=== PATIENT | female | born 1965 | race Caucasian/White ===

== ENCOUNTER → 2024-01-10 12:05 | Outpatient (BNVA) | payer BC, SELFPAY | PROVIDERS: Family Provider Nurse Practitioner Family; PCP Family Medicine; Visit Provider Family Medicine | DX: R19.7 Diarrhea, unspecified (principal) | CPT/HCPCS: 87045; 87177; 87209; 87427; 87449; 87493 ==

== ENCOUNTER 2025-03-25 13:20 | Outpatient (CLI) | payer BC, SELFPAY ==
--- NOTE | 2025-03-25 13:45 | MR_ITS ---
WS: [id number] MRI CERVICAL SPINE NONCONTRAST HISTORY: cervical disc disease COMPARISON: 09/04/2012 Technique: Multiplanar, multisequence noncontrast imaging of the cervical spine. Normal cervical alignment with no compression fracture or significant disc space narrowing. Signal within the cervical cord is normal. Visualized posterior fossa is unremarkable. Craniocervical junction, C1 and C2 relationship, odontoid process and soft tissues are normal. C2-C3: Normal. C3-C4: Normal. C4-C5: Mild annular disc bulging and minimal hypertrophic osteophyte development. Very mild LEFT foraminal narrowing. C5-C6: Mild annular disc bulging. No stenosis. C6-C7: Mild annular disc bulging with a very shallow central disc protrusion. Small bilateral foraminal osteophytes and mild facet disease. Mild central stenosis. C7-T1: Normal. Paraspinal soft tissue are normal. MR/MR cervical spin wo con* [id number] IMPRESSION: 1. No high-grade central or foraminal stenosis. 2. No acute compression fractures or marrow edema. 3. Mild LEFT foraminal stenosis at C4-5. 4. Shallow central disc protrusion at C6-7 and small foraminal osteophytes. Mi ld central stenosis.
== END 2025-03-25 13:21 | disposition home or self-care (01) ==
LOC: RAD 13:23
PROVIDERS: PCP Family Medicine; Visit Provider Family Medicine
DX: M50.321 Other cervical disc degeneration at C4-C5 level (principal); M50.322 Other cervical disc degeneration at C5-C6 level; M50.323 Other cervical disc degeneration at C6-C7 level; M48.02 Spinal stenosis, cervical region; M25.78 Osteophyte, vertebrae
CPT/HCPCS: 72141

== ENCOUNTER 2025-03-27 10:39 | Outpatient (CLI) | payer BC, SELFPAY ==
--- NOTE | 2025-03-27 11:00 | CTR_ITS ---
PROCEDURE INFORMATION: Exam: CT Chest With Contrast; Diagnostic Exam date and time: 03/27/2025 10:52 AM Age: 59 years old Clinical indication: Abnormal findings; Abnormal radiologic exam of lung or chest; Prior surgery; Surgery date: 6+ months; Surgery type: Breast reduction; Additional info: Lung mass on mri TECHNIQUE: Imaging protocol: Diagnostic computed tomography of the chest with contrast. Radiation optimization: All CT scans at this facility use at least one of these dose optimization techniques: automated exposure control; mA and/or kV adjustment per patient size (includes targeted exams where dose is matched to clinical indication); or iterative reconstruction. Contrast material: OMNI 350; Contrast volume: 100 ml; Contrast route: INTRAVENOUS (IV); COMPARISON: MR cervical spin wo con* [id number] 03/25/2025 1:37 PM RADIATION DOSE METRICS: Total DLP (mGy-cm): 254.61 FINDINGS: Thyroid: Thyroid is somewhat diminutive with possible heterogeneous ectopic thyroid/thyroid nodule measuring 15 mm within the upper mediastinum on image 14 of series 3. Lungs: Within normal limits. Pleural spaces: No pneumothorax. No pleural effusion. Heart: Within normal limits. Lymph nodes: Within normal limits. Vasculature: Nonaneurysmal ascending thoracic aorta with plaque. Intestine: Status post Jocelin-en-Y gastric bypass and cholecystectomy. Bones/joints: Possible T12 vertebral body hemangioma. Soft tissues: Unremarkable. CT/CT chest w con* [id number] IMPRESSION: Diminutive thyroid with possible ectopic thyroid/nodule measuring 15 mm in the upper mediastinum. This can be further evaluated with ultrasound and/or nuclear medicine examination. No adenopathy or suspicious lung lesions. COMMENTS: Consistent with the [employer]'s Incidental Findings Committee white paper (J Am Gabriel Radiol 2015): In patients aged 35 years and older with an incidental thyroid nodule equal to or greater than 1.[address], MRI or extrathyroidal US, further evaluation with dedicated thyroid US is recommended for patients with normal life expectancy and without comorbidities. For smaller nodules without suspicious features, no further evaluation or follow up is recommended.
[2025-03-27] MEDS: iohexol 350 mg/mL 500 mL Btl (per mL) IV (11:02)
== END 2025-03-27 10:40 | disposition home or self-care (01) ==
LOC: RAD 10:40
PROVIDERS: PCP Family Medicine; Visit Provider Family Medicine
DX: R91.8 Other nonspecific abnormal finding of lung field (principal); I70.0 Atherosclerosis of aorta; Z98.84 Bariatric surgery status; Z90.49 Acquired absence of other specified parts of digestive tract; E04.2 Nontoxic multinodular goiter
CPT/HCPCS: 71260

== ENCOUNTER 2025-04-13 13:31 | Outpatient (CLI) | payer BC, SELFPAY ==
--- NOTE | 2025-04-13 13:45 | MR_ITS ---
WS: [id number] MRI THORACIC SPINE WITHOUT CONTRAST TECHNIQUE: Sagittal T1, T2 and STIR imaging. Axial T2 imaging. Noncontrast imaging obtained. CLINICAL INFORMATION: back pain COMPARISON: None. FINDINGS: Mild thoracic curve. Mild thoracic kyphosis. No acute compression fractures. No high-grade central canal stenosis. Cord signal is normal. Moderate facet arthropathy lower thoracic spine. No significant disc protrusions or extrusions. Mild to moderate spondylitic changes. Normal caliber descending thoracic aorta. Adrenal glands are normal. Small esophageal hiatal hernia. Heterogeneous bone marrow signal throughout the thoracic spine. This is probably due to osteopenia/osteoporosis. Hemangioma T12. Suspected atypical hemangiomas at T3 and L1. Considering history of back pain recommend correlation for multiple myeloma although less likely. MR/MR thoracic spin wo con* [id number] IMPRESSION: 1. Mild thoracic curve. No acute compression. No high-grade central canal sten osis. 2. Diffuse heterogeneous bone marrow signal throughout the thoracic spine may be incidental but can be seen with osteoporosis, hyperplastic marrow/anemia, an d less likely multiple myeloma. Recommend correlation with laboratory markers. 3. No significant disc protrusions or extrusions. 4. Moderate facet arthropathy lower thoracic spine.
== END 2025-04-13 13:32 | disposition home or self-care (01) ==
LOC: RAD 13:32
PROVIDERS: PCP Family Medicine; Visit Provider Family Medicine
DX: M54.9 Dorsalgia, unspecified (principal); G89.29 Other chronic pain; M43.8X4 Other specified deforming dorsopathies, thoracic region; R93.7 Abnormal findings on diagnostic imaging of other parts of musculoskeletal system; M47.814 Spondylosis without myelopathy or radiculopathy, thoracic region; M40.204 Unspecified kyphosis, thoracic region; M46.84 Other specified inflammatory spondylopathies, thoracic region; K44.9 Diaphragmatic hernia without obstruction or gangrene
CPT/HCPCS: 72146

== ENCOUNTER → 2025-04-16 11:00 | Outpatient (BNVA) | payer BC, SELFPAY | PROVIDERS: PCP Family Medicine; Visit Provider Family Medicine | DX: R93.89 Abnormal findings on diagnostic imaging of other specified body structures (principal); M54.9 Dorsalgia, unspecified; G89.29 Other chronic pain | CPT/HCPCS: 80053; 83884; 84155; 84165; 85025 ==

== ENCOUNTER 2025-05-06 13:54 | Oncology outpatient (recurring) (ONCR) | payer BC, SELFPAY ==
[2025-05-06 15:14] LABS: Hematocrit 39.9 % (36-47); Hemoglobin 13.20 g/dL (11.27-16.99); Mean Corpuscular HGB Conc 33.1 g/dL (30-55); Mean Corpuscular Hemoglobin 29.3 pg (27-33); Mean Corpuscular Volume 88.7 fl (85-98); Nucleated Red Blood Cells % 0 %; Platelet Count 291 10^3/cmm (157-399); Red Blood Count 4.50 10^6/uL (3.85-5.65); White Blood Count 6.24 10^3/uL (3.29-11.43)
[2025-05-06 15:30] LABS: Iron 64 ug/dL (37-145)
[2025-05-06 15:31] LABS: Alanine Aminotransferase 18 U/L (0-33); Albumin Level 4.6 g/dL (3.5-5.2); Alkaline Phosphatase 88 U/L (35-105); Anion Gap 18.1 (5-19); Aspartate Amino Transferase 26 U/L (0-32); Blood Urea Nitrogen 19 mg/dL (6-20); Calcium 9.7 mg/dL (8.5-10.5); Carbon Dioxide 27 mmol/L (22-29); Chloride 100 mmol/L (98-107); Ferritin 123 ng/mL (15-150); Globulin 2.5 g/dL (1.3-4.6); Glucose 98 mg/dL (65-115); Iron 66 ug/dL (37-145); Osmolality Calculated 294 mOsm/kg (285-295); Potassium 4.1 mmol/L (3.5-5.1); Sodium 141 mmol/L (136-145); Total Iron Binding Capacity 278 mcg/dl; Total Protein 7.1 g/dL (6.6-8.7); Unsaturated Iron Binding 212 ug/dL (112-347)
[2025-05-06 15:46] LABS: Vitamin B12 532 pg/mL (232-1245)
[2025-05-07 06:50] LABS: PROTEIN, TOTAL 7.1 g/dL (6.1-8.1)
[2025-05-07 08:00] LABS: Creatinine, Random Urine 120 mg/dL (20-275); Protein, Total, Random 7 mg/dL (5-24); Protein/Creatinine Ratio 0.058 (0.024-0.184); Protein/Creatinine Ratio 58 mg/g creat (24-184)
== END 2025-05-06 23:59 | disposition home or self-care (01) ==
LOC: ONCMED 13:54
PROVIDERS: PCP Family Medicine; Visit Provider Internal Medicine
DX: D64.9 Anemia, unspecified (principal); R93.89 Abnormal findings on diagnostic imaging of other specified body structures
CPT/HCPCS: 36415; 80053; 82570; 82607; 82728; 82746; 82784; 83010; 83540; 83550; 83615; 83883; 84155; 84156; 84165; 84166; 85025; 85045; 86334; 86335